=== PATIENT | female | born 1995 | race Caucasian/White ===

== ENCOUNTER 2018-12-15 06:55 | Inpatient (IN) | payer MEDICAID ==
[~2018-12-15] VITALS: Ht 160 cm; Wt 93.9 kg
[2018-12-15] MEDS ORDERED: INDOCYANINE GREEN 25 MG VIAL IV ONE (07:12)
[2018-12-15] MEDS ORDERED: LIDOCAINE HCL 1% 20ML VIAL (Pyxis) INJ ONE ×2 (07:12→08:40)
[2018-12-15] MEDS ORDERED: BUPIVACAINE HCL/PF 0.5% (5MG/ML) 10ML ONE (07:13)
[2018-12-15] MEDS ORDERED: BACITRACIN 50,000 UNITS/VIAL ONE (07:13)
[2018-12-15] MEDS ORDERED: SKIN ADHESIVE 0.7 GM EA TOP ONE (07:13)
[2018-12-15] MEDS ORDERED: LACTATED RINGERS 1,000 ML IV SCH (08:00)
[2018-12-15 08:29] LABS: UCG SCREEN NEGATIVE
[2018-12-15] MEDS ORDERED: ROCURONIUM BROMIDE 10MG/ML VIAL 5ML IV ONE ×2 (08:39→10:33)
[2018-12-15] MEDS ORDERED: PROPOFOL 200MG/20ML VIAL IV ONE (08:39)
[2018-12-15] MEDS ORDERED: FENTANYL CITRATE/PF 50MCG/ML 2ML VIAL ONE ×2 (08:39→10:36)
[2018-12-15] MEDS ORDERED: DEXAMETHASONE 4MG/ML 1ML VIAL ONE (08:40)
[2018-12-15] MEDS ORDERED: CEFAZOLIN SODIUM 1000MG/VIAL ONE (08:40)
[2018-12-15] MEDS ORDERED: SODIUM CHLORIDE 0.9% 10ML VIAL ONE (08:40)
[2018-12-15] MEDS ORDERED: MIDAZOLAM HCL 2 MG/2 ML VIAL ONE (08:56)
[2018-12-15] MEDS ORDERED: HYDROMORPHONE HCL/PF 2MG/ML (OR) ONE (10:36)
[2018-12-15] MEDS ORDERED: GLYCOPYRROLATE 0.2 MG/ML 2ML VIAL ONE (10:36)
[2018-12-15] MEDS ORDERED: NEOSTIGMINE METHYLSULFATE 1MG/ML 10 ML VIAL ONE (10:36)
[2018-12-15] MEDS ORDERED: KETOROLAC 30MG/ML VIAL ONE (10:39)
[2018-12-15] MEDS ORDERED: ONDANSETRON HCL 4MG/2ML INJ ONE (10:39)
[2018-12-15] MEDS ORDERED: METOCLOPRAMIDE HCL 10MG/2ML VIAL ONE (10:39)
[2018-12-15] MEDS ORDERED: ONDANSETRON HCL 4MG/2ML INJ IV PRN (12:00)
[2018-12-15] MEDS ORDERED: HYDRALAZINE 20MG/ML VIAL IV PRN (12:00)
[2018-12-15] MEDS: HYDROMORPHONE HCL/PF 2MG/ML CPJ IV PRN ×3 (12:50→18:23)
[2018-12-15 16:12] VITALS: BP 136/66
[2018-12-15] MEDS: SODIUM CHLORIDE 0.45% 1,000 ML IV SCH (18:36)
[2018-12-15 20:00] VITALS: BP 113/68
[2018-12-15] MEDS: ONDANSETRON HCL 4MG/2ML INJ IV PRN (21:39)
[2018-12-15] MEDS: KETOROLAC 30MG/ML VIAL IV SCH (21:40)
[2018-12-16] VITALS: BP 155/72
[2018-12-16] MEDS: SODIUM CHLORIDE 0.45% 1,000 ML IV SCH (02:51)
[2018-12-16] MEDS: ONDANSETRON HCL 4MG/2ML INJ IV PRN (02:52)
[2018-12-16] MEDS: HYDROMORPHONE HCL/PF 2MG/ML CPJ IV PRN ×2 (02:52→10:26)
[2018-12-16 04:00] VITALS: BP 105/66
[2018-12-16] MEDS: KETOROLAC 30MG/ML VIAL IV SCH ×2 (04:30→10:30)
[2018-12-16 08:00] VITALS: BP 106/71
[2018-12-16] MEDS ORDERED: INFLUENZA VIRUS VACCINE(AFLURIA) 0.5ML SYR IM ONE (10:00)
[2018-12-16 11:31] VITALS: BP 101/61
[2018-12-16 12:00] VITALS: BP 101/61
== END 2018-12-16 12:44 | disposition home or self-care (01) | DRG 263 ==
LOC: OR 06:55 → 6EST 06:57
PROVIDERS: ADMIT Specialist; ATTEND Specialist
PROC: 0FT44ZZ Resection of Gallbladder, Percutaneous Endoscopic Approach (ICD-10-PCS; principal; 2018-12-15)
PROC: 8E0W4CZ Robotic Assisted Procedure of Trunk Region, Percutaneous Endoscopic Approach (ICD-10-PCS; 2018-12-15)
DX: K80.10 Calculus of gallbladder with chronic cholecystitis without obstruction (principal); K82.8 Other specified diseases of gallbladder; Z84.89 Family history of other specified conditions
CPT/HCPCS: 81025; 88304; J0690; J1100; J1170; J1885; J2250; J2405; J2704; J2710; J2765; J3010; J3490; Q9957